=== PATIENT | female | born 1945 | race African-American/Black ===

== ENCOUNTER 2017-05-06 17:42 | Inpatient (IN) | payer MEDICARE, MEDICAID ==
[~2017-05-06] VITALS: Ht 154.9 cm; Wt 61.8 kg
[2017-05-06 19:22] LABS: Basophils # (auto) 0 uL; Basophils % (auto) 0.4 % (0.0-2.0); Eosinophils # (auto) 0 uL; Eosinophils % (auto) 0.3 % (0.0-7.0); Lymphocytes # (auto) 0.6 uL; Lymphocytes % (auto) 8.7 % (10.0-50.0); Mean Corpuscular Hemoglobin 33.2 pg (28.0-32.0); Mean Corpuscular Hgb Conc. 32.7 g/dL (32.0-36.0); Mean Corpuscular Volume 101.5 fL (80.0-100.0); Mean Platelet Volume 9.2 fL (6.9-10.8); Monocytes # (auto) 0.4 uL; Monocytes % (auto) 6.3 % (0.0-12.0); Neutrophils # (auto) 5.4 uL; Neutrophils % (auto) 84.3 % (37.0-80.0); Nucleated Red Blood Cells % 0.1 %; Platelet Count (auto) 201 10^3/uL (140-450); Red Cell Distribution Width 18.1 % (11.8-14.3); White Blood Cell 6.4 10^3/uL (4.4-10.8)
[2017-05-06 20:12] LABS: Albumin 3.3 g/dL (3.4-5.0); Alkaline Phosphatase 109 U/L (45-117); Anion Gap 9 (5-15); Aspartate Aminotransferase 14 U/L (15-37); BUN/Creatinine Ratio 10.8; Bilirubin, Total 0.9 mg/dL (0.2-1.0); Blood Urea Nitrogen 17 mg/dL (7-18); Calcium 8.9 mg/dL (8.5-10.1); Carbon Dioxide 19 mmol/L (21-32); Chloride 113 mmol/L (98-107); GFR African American 41 mL/min; GFR Non-African American 34 mL/min; Glucose 86 mg/dL (74-106); Potassium 3.7 mmol/L (3.5-5.1); Sodium 141 mmol/L (136-145); Total Protein 8.1 g/dL (6.4-8.2)
[2017-05-06] MEDS ORDERED: SODIUM CHLORIDE 0.9% 1,000 ML IV ONE (20:15)
[2017-05-06 20:28] LABS: Urine Bilirubin Negative (Negative); Urine Blood Negative /uL (Negative); Urine Color Yellow (Yellow); Urine Glucose Normal (Normal); Urine Ketone Negative (Negative); Urine Nitrite Negative (Negative); Urine RBC <1 /hpf (0 - 4); Urine Squamous Epithelial Cell FEW /hpf (<5); Urine Urobilinogen Normal (Negative)
[2017-05-07] MEDS: SODIUM CHLORIDE 0.9% 1,000 ML IV SCH ×2 (00:47→20:53)
[2017-05-07] MEDS ORDERED: LEVETIRACETAM INJ 500 MG in SODIUM CHL 0.9% 100 ML IV ONE (01:00)
[2017-05-07] MEDS ORDERED: hydrALAZINE HCL 20 MG/ML VL IV PRN (01:00)
[2017-05-07] MEDS ORDERED: NITROGLYCERIN 0.4 MG SL TAB SL PRN (01:00)
[2017-05-07] MEDS ORDERED: ONDANSETRON HCL 4 MG/2 ML VIAL IV PRN (01:00)
[2017-05-07] MEDS ORDERED: FUROSEMIDE 20 MG/2 ML VIAL IV ONE (01:00)
[2017-05-07] MEDS ORDERED: MORPHINE SULF INJ 2 MG/ML SYRINGE 1ML IV PRN (01:00)
[2017-05-07] MEDS ORDERED: LEVETIRACETAM 500 MG/5ML INJ IV ONE (01:24)
[2017-05-07 01:48] LABS: Temperature: 21.8 C (20.0-25.0)
[2017-05-07] MEDS: ENOXAPARIN SOD 30 MG/0.3 ML SYRINGE SC SCH ×3 (01:50→11:26)
[2017-05-07 04:00] VITALS: BP 134/80
[2017-05-07] MEDS ORDERED: HYDR50TA15 PO (04:26)
[2017-05-07] MEDS ORDERED: CLOP75TA28 PO (04:26)
[2017-05-07] MEDS ORDERED: HYDR-4683 PO (04:26)
[2017-05-07] MEDS ORDERED: ATOR40TA52 PO (04:26)
[2017-05-07] MEDS ORDERED: METO25TA62 PO (04:26)
[2017-05-07] MEDS ORDERED: ONDA4TAB5 PO (04:26)
[2017-05-07] MEDS ORDERED: AMOX250C3 PO (04:26)
[2017-05-07 05:00] VITALS: BP 142/75
[2017-05-07 08:40] VITALS: BP 118/68
[2017-05-07] MEDS ORDERED: LEVETIRACETAM INJ 500 MG in SODIUM CHL 0.9% 100 ML IV SCH (10:00)
[2017-05-07] MEDS ORDERED: LORazepam 2MG/ML-1ML VIAL IV ONE (12:45)
[2017-05-07] MEDS ORDERED: LORazepam 2MG/ML-1ML VIAL IV PRN ×2 (14:45→15:00)
[2017-05-07] MEDS ORDERED: HALOPERIDOL LACTATE 5 MG/ML INJ VIAL IM PRN (14:45)
[2017-05-07] MEDS ORDERED: ASPirin-EC 81 mg tab PO ONE (15:00)
[2017-05-07 17:00] VITALS: BP 152/87
[2017-05-07] MEDS: ATORVASTATIN 20 MG TAB PO SCH (20:53)
[2017-05-07 21:40] VITALS: BP 165/103
[2017-05-07 23:00] VITALS: BP 145/90
[2017-05-08 05:00] VITALS: BP 142/72
[2017-05-08] MEDS: SODIUM CHLORIDE 0.9% 1,000 ML IV SCH (05:38)
[2017-05-08 07:42] LABS: Basophils # (auto) 0 uL; Basophils % (auto) 0.4 % (0.0-2.0); Eosinophils # (auto) 0 uL; Eosinophils % (auto) 0.5 % (0.0-7.0); Hematocrit 44.6 % (36.0-46.0); Hemoglobin 14.5 g/dL (12.2-16.2); Lymphocytes # (auto) 0.7 uL; Lymphocytes % (auto) 12.2 % (10.0-50.0); Mean Corpuscular Hemoglobin 32.6 pg (28.0-32.0); Mean Corpuscular Hgb Conc. 32.4 g/dL (32.0-36.0); Mean Corpuscular Volume 100.4 fL (80.0-100.0); Mean Platelet Volume 9.2 fL (6.9-10.8); Monocytes # (auto) 0.4 uL; Monocytes % (auto) 7.8 % (0.0-12.0); Neutrophils # (auto) 4.5 uL; Neutrophils % (auto) 79.1 % (37.0-80.0); Nucleated Red Blood Cells % 0.1 %; Platelet Count (auto) 188 10^3/uL (140-450); Red Cell Distribution Width 17.5 % (11.8-14.3); White Blood Cell 5.6 10^3/uL (4.4-10.8)
[2017-05-08 08:01] LABS: Albumin 3.2 g/dL (3.4-5.0); BUN/Creatinine Ratio 9.9; Calcium 9.1 mg/dL (8.5-10.1); Potassium 4.1 mmol/L (3.5-5.1)
[2017-05-08 08:30] VITALS: BP 127/76
[2017-05-08 09:00] VITALS: BP 127/76
[2017-05-08] MEDS: ENOXAPARIN SOD 30 MG/0.3 ML SYRINGE SC SCH (10:06)
[2017-05-08] MEDS: METOPROLOL SUCCINATE XL 50 MG TAB PO SCH (10:06)
[2017-05-08] MEDS: ASPirin-EC 81 mg tab PO SCH (10:07)
[2017-05-08 14:00] VITALS: BP 138/75
[2017-05-08 17:02] VITALS: BP 147/71
[2017-05-08] MEDS: ATORVASTATIN 20 MG TAB PO SCH (21:34)
[2017-05-08 21:35] VITALS: BP 128/67
[2017-05-09] MEDS ORDERED: ACETAMINOPHEN 325 MG TAB PO PRN (01:00)
[2017-05-09 04:33] VITALS: BP 133/72
[2017-05-09 06:24] LABS: BUN/Creatinine Ratio 10.6; Calcium 9.3 mg/dL (8.5-10.1); Potassium 3.5 mmol/L (3.5-5.1)
[2017-05-09 08:00] VITALS: BP 139/72
[2017-05-09 09:00] VITALS: BP 139/72
[2017-05-09] MEDS: METOPROLOL SUCCINATE XL 50 MG TAB PO SCH (10:23)
[2017-05-09] MEDS: ASPirin-EC 81 mg tab PO SCH (10:24)
[2017-05-09 13:00] VITALS: BP 131/77
[2017-05-09 17:00] VITALS: BP 136/79
[2017-05-09 20:31] VITALS: BP 133/78
[2017-05-09] MEDS: ATORVASTATIN 20 MG TAB PO SCH (21:27)
[2017-05-10 05:07] VITALS: BP 112/73
[2017-05-10 06:35] LABS: BUN/Creatinine Ratio 11.4; Calcium 9.2 mg/dL (8.5-10.1); Potassium 3.8 mmol/L (3.5-5.1)
[2017-05-10 09:34] VITALS: BP 98/53
[2017-05-10 09:39] VITALS: BP 118/70
[2017-05-10] MEDS: ASPirin-EC 81 mg tab PO SCH (09:42)
[2017-05-10] MEDS: ENOXAPARIN SOD 30 MG/0.3 ML SYRINGE SC SCH (09:42)
[2017-05-10] MEDS: METOPROLOL SUCCINATE XL 50 MG TAB PO SCH (09:42)
[2017-05-10] MEDS ORDERED: LORazepam 2MG/ML-1ML VIAL IV ONE (15:00)
[2017-05-10] MEDS: SODIUM CHLORIDE 0.9% 1,000 ML IV SCH (15:51)
[2017-05-10] MEDS: CLOPIDOGREL BISULFATE 75 MG TAB PO SCH (15:51)
[2017-05-10 17:11] VITALS: BP 120/72
[2017-05-10] MEDS: ATORVASTATIN 20 MG TAB PO SCH (21:51)
[2017-05-10] MEDS: hydrALAZINE HCL 25 MG TAB PO SCH (21:52)
[2017-05-11 06:08] VITALS: BP 120/66
[2017-05-11 07:09] LABS: BUN/Creatinine Ratio 11.9; Calcium 9.3 mg/dL (8.5-10.1); Potassium 3.9 mmol/L (3.5-5.1)
[2017-05-11 08:00] VITALS: BP 131/57
[2017-05-11 09:00] VITALS: BP 131/57
[2017-05-11] MEDS: CLOPIDOGREL BISULFATE 75 MG TAB PO SCH (09:36)
[2017-05-11] MEDS: METOPROLOL SUCCINATE XL 50 MG TAB PO SCH (09:36)
[2017-05-11] MEDS: ASPirin-EC 81 mg tab PO SCH (09:36)
[2017-05-11] MEDS: SODIUM CHLORIDE 0.9% 1,000 ML IV SCH (09:39)
[2017-05-11] MEDS: hydrALAZINE HCL 25 MG TAB PO SCH ×2 (09:39→21:30)
[2017-05-11] MEDS: ENOXAPARIN SOD 30 MG/0.3 ML SYRINGE SC SCH (10:00)
[2017-05-11] MEDS ORDERED: fentaNYL CITRATE 100 MCG/2 ML VL IV ONE (12:00)
[2017-05-11] MEDS ORDERED: MIDAZOLAM HCL 1MG/1ML-2 ML VIAL IV ONE (12:00)
[2017-05-11] MEDS ORDERED: LIDOCAINE VISCOUS 2% 15ML UD MT ONE (12:00)
[2017-05-11] MEDS ORDERED: BENZOCAINE (DENTAL) 20 % SPRAY 60ML MT ONE (12:00)
[2017-05-11 13:00] VITALS: BP 123/59
[2017-05-11 17:00] VITALS: BP 143/66
[2017-05-11] MEDS: ATORVASTATIN 20 MG TAB PO SCH (21:30)
[2017-05-11] MEDS: APIXABAN 2.5 MG TAB PO SCH (21:30)
[2017-05-11 21:44] VITALS: BP 130/45
[2017-05-12] MEDS: SODIUM CHLORIDE 0.9% 1,000 ML IV SCH ×2 (00:26→17:30)
[2017-05-12 05:11] VITALS: BP 133/78
[2017-05-12 06:39] LABS: BUN/Creatinine Ratio 11.4; Calcium 9.5 mg/dL (8.5-10.1); Potassium 3.9 mmol/L (3.5-5.1)
[2017-05-12 08:43] VITALS: BP 125/62
[2017-05-12] MEDS: METOPROLOL SUCCINATE XL 50 MG TAB PO SCH (09:49)
[2017-05-12] MEDS: APIXABAN 2.5 MG TAB PO SCH (09:49)
[2017-05-12] MEDS: hydrALAZINE HCL 25 MG TAB PO SCH (09:50)
[2017-05-12] MEDS ORDERED: ATOR40TA52 PO (10:03)
[2017-05-12] MEDS ORDERED: APIX2.5T PO (10:03)
[2017-05-12] MEDS ORDERED: HYDR50TA15 PO (10:07)
[2017-05-12] MEDS ORDERED: METO25TA62 PO (10:07)
[2017-05-12 11:42] VITALS: BP 133/70
[2017-05-12 11:48] VITALS: BP 125/62
[2017-05-12 17:00] VITALS: BP 152/77
== END 2017-05-12 18:08 | disposition home health service (06) | DRG 45 ==
LOC: ER 17:42 → TELE-WESTW 17:43
PROVIDERS: ADMIT Internal Medicine; ATTEND Internal Medicine
PROC: B24BZZ4 Ultrasonography of Heart with Aorta, Transesophageal (ICD-10-PCS; principal; 2017-05-11)
DX: I63.9 Cerebral infarction, unspecified (principal); N17.0 Acute kidney failure with tubular necrosis; G93.41 Metabolic encephalopathy; G45.9 Transient cerebral ischemic attack, unspecified; E78.5 Hyperlipidemia, unspecified; F17.200 Nicotine dependence, unspecified, uncomplicated; R29.810 Facial weakness; G81.94 Hemiplegia, unspecified affecting left nondominant side; I13.10 Hypertensive heart and chronic kidney disease without heart failure, with stage 1 through stage 4 chronic kidney disease, or unspecified chronic kidney disease; N18.3 Chronic kidney disease, stage 3 (moderate); I70.0 Atherosclerosis of aorta; I25.2 Old myocardial infarction; Z79.82 Long term (current) use of aspirin; Z82.3 Family history of stroke; Z86.73 Personal history of transient ischemic attack (TIA), and cerebral infarction without residual deficits
CPT/HCPCS: 36415; 70450; 70551; 71010; 80048; 80053; 80061; 80307; 80320; 81001; 83735; 83880; 84484; 85025; 92610; 93005; 93306; 93312; 93886; 95819; 96361; 96365; 96375; 97110; 97116; 97163; 97530; 99152; 99153; J2250

== ENCOUNTER → 2018-11-16 | Outpatient (CLI) | payer MEDICARE, MEDICAID ==
[~2018-11-16] MED LIST: AMOX250C3 PO; APIX2.5T PO; ATOR40TA52 PO; HYDR-4683 PO; HYDR50TA15 PO; METO25TA62 PO; ONDA4TAB5 PO
[2018-11-16 09:17] LABS: Basophils # (auto) 0 uL; Basophils % (auto) 0.5 % (0.0-2.0); Eosinophils # (auto) 0.1 uL; Eosinophils % (auto) 1.2 % (0.0-7.0); Hematocrit 46.2 % (36.0-46.0); Hemoglobin 15.3 g/dL (12.2-16.2); Lymphocytes # (auto) 0.9 uL; Lymphocytes % (auto) 15.3 % (10.0-50.0); Mean Corpuscular Hemoglobin 32.4 pg (28.0-32.0); Mean Corpuscular Hgb Conc. 33.1 g/dL (32.0-36.0); Monocytes # (auto) 0.3 uL; Monocytes % (auto) 5.1 % (0.0-12.0); Neutrophils # (auto) 4.8 uL; Neutrophils % (auto) 77.9 % (37.0-80.0); Nucleated Red Blood Cells % 0.1 %; Platelet Count (auto) 229 10^3/uL (140-450); Red Blood Cells 4.72 10^6/uL (4.0-5.20); Red Cell Distribution Width 17.5 % (11.8-14.3); White Blood Cell 6.2 10^3/uL (4.4-10.8)
[2018-11-16 09:24] LABS: Urine Bacteria FEW /hpf (None Seen); Urine Blood Negative /uL (Negative); Urine WBC <1 /hpf (0 - 5)
[2018-11-16 09:55] LABS: Albumin 3.7 g/dL (3.4-5.0); Calcium 10.1 mg/dL (8.5-10.1); Potassium 4.1 mmol/L (3.5-5.1)
[2018-11-16 10:01] LABS: BUN/Creatinine Ratio 10.9; Bilirubin, Total 0.8 mg/dL (0.2-1.0)
== END | disposition home or self-care (01) ==
LOC: LAB 08:34
PROVIDERS: ATTEND Internal Medicine
DX: E78.00 Pure hypercholesterolemia, unspecified (principal); Z86.73 Personal history of transient ischemic attack (TIA), and cerebral infarction without residual deficits
CPT/HCPCS: 36415; 80053; 80061; 81001; 82043; 84439; 84443; 85025; 85652